=== PATIENT | female | born 1960 | race Two or more races ===

== ENCOUNTER 2018-02-24 06:43 | Day surgery (SDC) | payer OTHER ==
[2018-02-24] MEDS ORDERED: SOD CHLORIDE 0.9% 1,000 ML IV (08:30)
[2018-02-24] MEDS ORDERED: CEFAZOLIN 1 GM/50 ML (PMX) 50 ML IVPB (08:30)
[2018-02-24] MEDS ORDERED: MIDAZOLAM 1 MG/ML 2 ML INJ (10:33)
[2018-02-24] MEDS ORDERED: ACETAMINOPHEN 1000MG/100ML IV 0 ML (10:33)
[2018-02-24] MEDS ORDERED: CEFAZOLIN 1 GM INJ (10:33)
[2018-02-24] MEDS ORDERED: METOCLOPRAMIDE 10 MG INJ (10:33)
[2018-02-24] MEDS ORDERED: ONDANSETRON 4 MG INJ (10:33)
[2018-02-24] MEDS ORDERED: PROPOFOL 20 ML (10:34)
[2018-02-24] MEDS ORDERED: FENTAnyl 50 MCG/ML VIAL (10:34)
[2018-02-24] MEDS: BUPIVACAINE 0.25% (MPF) 30 ML INJ (10:59)
[2018-02-24] MEDS ORDERED: HYDROmorphONE (0.2 MG/ML) 10ML SYG IV ×3 (11:00)
[2018-02-24] MEDS ORDERED: MEPERIDINE 25 MG INJ IV (11:00)
[2018-02-24] MEDS ORDERED: DIPHENHYDRAMINE 50 MG INJ IV (11:00)
[2018-02-24] MEDS ORDERED: ONDANSETRON 4 MG INJ IV (11:00)
[2018-02-24] MEDS ORDERED: OXYCODONE/ACETAMINOPHEN (5/325) TAB PO ×2 (11:00)
[2018-02-24] MEDS ORDERED: EPHEDrine SULFATE 50 MG/5 ML SYG (11:19)
[2018-02-24] MEDS ORDERED: HYDROCODONE/APAP (5/325) TAB PO (11:30)
== END 2018-02-24 13:00 | disposition home or self-care (01) ==
LOC: SDS 06:43
DX: N62 Hypertrophy of breast (principal); I10 Essential (primary) hypertension; E78.5 Hyperlipidemia, unspecified
CPT/HCPCS: 19301; 88307